=== PATIENT | male | born 1990 | race Caucasian/White ===

== ENCOUNTER 2022-07-19 18:27 | Emergency (ER) | payer OTHER ==
[2022-07-19 18:59] VITALS: BP 121/83; PULSE 94; RESP 16; TEMP 99.9; BMI 25.1
[2022-07-19] MEDS ORDERED: IBUPROFEN 600 MG TABLET (FP) PO ONE ×2 (19:32→19:35)
== END 2022-07-19 19:44 | disposition home or self-care (01) ==
LOC: FER 18:27
DX: M66.822 Spontaneous rupture of other tendons, left upper arm (principal)
CPT/HCPCS: 99283-25